=== PATIENT | male | born 1980 | race Caucasian/White ===

== ENCOUNTER → 2018-06-23 | Outpatient (CLI) | payer OTHER ==
[~2018-06-23] MED LIST: CLEOCIN HCL150 M1 PO; PRILOSEC 20 MG20 MG PO
== END ==
LOC: M.RAD 09:14
DX: M47.27 Other spondylosis with radiculopathy, lumbosacral region (principal); M48.07 Spinal stenosis, lumbosacral region

== ENCOUNTER 2020-10-03 14:36 | Emergency (ER) | payer BC ==
[~2020-10-03] VITALS: Ht 180.3 cm; Wt 82.6 kg
[2020-10-03] MEDS ORDERED: ADVIL100 M3 PO (14:55)
[2020-10-03 15:27] LABS: ABSOLUTE BASOPHILS 0.1 thou/uL (0.0-0.2); ABSOLUTE EOSINOPHILS 0.1 thou/uL (0.0-0.7); ABSOLUTE LYMPHOCYTES 2.4 thou/uL (0.8-5.3); ABSOLUTE MONOCYTES 0.8 thou/uL (0.0-1.2); ABSOLUTE NEUTROPHILS 6.7 thou/uL (1.6-8.1); BASOPHILS 0.6 %; EOSINOPHILS 1.1 %; HEMATOCRIT 40.8 % (42.0-52.0); HEMOGLOBIN 14.1 gm/dL (14.0-18.0); LYMPHOCYTES 23.8 %; MCH 31.8 pg (26.0-34.0); MCHC 34.7 g/dL (28.0-37.0); MCV 91.8 fL (80.0-100.0); MONOCYTES 7.9 %; MPV 8.2 fl. (7.2-11.1); NUCLEATED RBCS 0 /100WBC; PLATELET COUNT* 294 thou/uL (150-400); POLYS 66.6 %; RBC 4.44 mil/uL (4.50-6.00)
[2020-10-03 15:34] LABS: CALCIUM 9.1 mg/dL (8.5-10.1); CREATININE 1.2 mg/dL (0.6-1.3); POTASSIUM 4.3 mmol/L (3.5-5.1)
[2020-10-03 15:39] LABS: ALBUMIN 4.1 g/dL (3.4-5.0); TOTAL BILIRUBIN 0.5 mg/dL (<0.1-1.0); TOTAL PROTEIN 7.7 g/dL (6.4-8.2)
[2020-10-03] MEDS ORDERED: MECLIZINE HCL25 M1 PO (17:03)
[2020-10-03 17:30] VITALS: BP 127/81
--- NOTE | 2020-10-04 12:20 | EKG ---
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: [facility] : 1980 Requested By: Unruly Collins Order Number: [id number] MD: Jaime Angulo Measurements Intervals [place] Rate: 73 P: 36 NC: 154 QRS: 38 QRSD: 89 T: 19 QT: 366 QTc: 404 Interpretive Statements Sinus rhythm Possible left ventricular hypertrophy No previous ECG available for comparison Electronically Signed On 10-04-2020 12:20:08 CDT by Jaime Angulo [email or web address] <ELECTRONICALLY SIGNED> By: Jaime Angulo MD, [facility] 10/04/20 1220 153 153 Jaime Angulo MD, FAC /EPI
== END 2020-10-03 17:30 | disposition home or self-care (01) ==
LOC: M.ERS 14:36
PROVIDERS: Emergency Medicine Emergency Medical Services
DX: R51.9 Headache, unspecified (principal); R53.83 Other fatigue; R42 Dizziness and giddiness; K21.9 Gastro-esophageal reflux disease without esophagitis; F17.210 Nicotine dependence, cigarettes, uncomplicated; Z90.89 Acquired absence of other organs; Z79.899 Other long term (current) drug therapy